=== PATIENT | male | born 1990 | race African-American/Black ===

== ENCOUNTER 2021-01-31 14:27 | Emergency (ER) | payer OTHER ==
[2021-01-31 14:47] VITALS: BP 124/67; PULSE 67; TEMP 98.3; BMI 29.8
[2021-01-31] MEDS ORDERED: IBUPROFEN 400 MG TABLET (FP) PO ONE ×2 (15:19→15:22)
== END 2021-01-31 16:34 | disposition home or self-care (01) ==
LOC: JER 14:27
DX: M94.0 Chondrocostal junction syndrome [Tietze] (principal); R07.9 Chest pain, unspecified
CPT/HCPCS: 71046-TC-FY; 93005; 93010; 99284-25